=== PATIENT | male | born 1945 | race Caucasian/White ===

== ENCOUNTER → 2020-12-11 | Outpatient (CLI) | payer OTHER ==
[~2020-12-11] MED LIST: ASPIRIN 325MG325 MG PO; LEVAQUIN500 MG PO; LIPITOR TAB 2020 MG PO; LOPRESSOR 25 MG25 MG PO; METFORMIN ER1000 MG PO; NITROGLYCERIN6.5 MG PO; NITROSTAT0.4 MG SL; PLAVIX 75 MG TA75 MG PO; PRINIVIL10 MG PO; THERAGRAN M TAB1 EA PO; TRICOR48 MG PO; TYLENOL W/CODEIN1 E1 PO
[2020-12-11 09:36] LABS: BUN/CREATININE RATIO 24 (0-10)
== END ==
LOC: HEART 5 08:02
PROVIDERS: Orthopaedic Surgery
DX: I25.9 Chronic ischemic heart disease, unspecified (principal); E11.9 Type 2 diabetes mellitus without complications; I08.3 Combined rheumatic disorders of mitral, aortic and tricuspid valves; R93.1 Abnormal findings on diagnostic imaging of heart and coronary circulation; Z95.0 Presence of cardiac pacemaker
CPT/HCPCS: 36415; 80053; 93306

== ENCOUNTER → 2022-05-17 | Outpatient (CLI) | payer MEDICARE | LOC: HEART 5 09:00 | DX: Z01.818 Encounter for other preprocedural examination (principal); I25.10 Atherosclerotic heart disease of native coronary artery without angina pectoris; I25.5 Ischemic cardiomyopathy; I70.0 Atherosclerosis of aorta; I08.1 Rheumatic disorders of both mitral and tricuspid valves; R94.39 Abnormal result of other cardiovascular function study | CPT/HCPCS: 78452; 93306; A9502; J2785 ==